=== PATIENT | female | born 2005 | race Caucasian/White ===

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

== ENCOUNTER 2024-07-05 21:22 | Observation (INO) | payer OTHER ==
[~2024-07-05] VITALS: Ht 157.5 cm; Wt 92.1 kg
[2024-07-05] MEDS: SODIUM CHLORIDE 0.9% 1000ML 1,000 ML IV ONE (22:59)
[2024-07-06] VITALS (7 sets, daily range): BP systolic 123–133; BP diastolic 75–89; PULSE 58–75; RESP 16–18; TEMP 97–98.2; O2SAT 98–100
[2024-07-06] MEDS: SODIUM CHLORIDE 0.9% 1000ML 1,000 ML IV SCH (04:35)
[2024-07-06 05:43] LABS: TROPONIN I 0.004 ng/mL (0-0.300)
== END 2024-07-06 11:00 | disposition home or self-care (01) ==
LOC: FSED 21:51 → ERHOLD 07-06 00:14 → MED/SURG 07-06 02:17
PROVIDERS: ADMIT Internal Medicine; ATTEND Internal Medicine
DX: R55 Syncope and collapse (principal); R00.1 Bradycardia, unspecified
CPT/HCPCS: 36415; 70450; 80053; 80307; 81003; 81025; 82550; 82553; 84484; 85025; 93005; 99284; G0378; J7030 ×2